=== PATIENT | female | born 1985 | race Two or more races ===

== ENCOUNTER 2018-10-12 00:59 | Emergency (ER) | payer SELFPAY ==
[~2018-10-12] VITALS: Ht 167.6 cm; Wt 65.8 kg
[~2018-10-12 00:59] MED LIST: OMEP20TA20 PO; PNV11TAB
--- NOTE | 2018-10-12 01:26 | NUR ---
BIBS. C/O "HAVE A HEADACHE, DIZZY AND DOUBLE VISION FOR 10X DAYS NOW" -SOB -N/V -ACUTE DISTRESS. -NEURO DEFICITS. AOX.4
[2018-10-12] MEDS ORDERED: DEXAMETHASONE SOD PHOSPHATE 4 MG/ML VIAL IM ONE (01:30)
[2018-10-12] MEDS ORDERED: CARISOPRODOL 350 MG TABLET PO ONE (01:30)
[2018-10-12] MEDS ORDERED: HYDROMORPHONE INJ 0.5 MG/0.5 ML SYRINGE IM ONE (01:30)
[2018-10-12] MEDS ORDERED: DEXAMETHASONE SOD PHOSPHATE 10 MG/ML VIAL ONE (01:32)
[2018-10-12] MEDS ORDERED: CARISOPRODOL 350 MG TABLET ONE (01:33)
[2018-10-12] MEDS ORDERED: HYDROMORPHONE 1 MG/1 ML DISP.SYRIN ONE (01:33)
[2018-10-12 04:28] VITALS: BP 122/81
== END 2018-10-12 04:29 | disposition home or self-care (01) ==
LOC: ER 01:04
DX: S13.4XXA Sprain of ligaments of cervical spine, initial encounter (principal); M54.12 Radiculopathy, cervical region; G44.209 Tension-type headache, unspecified, not intractable; Z98.890 Other specified postprocedural states; V49.69XA Unspecified car occupant injured in collision with other motor vehicles in traffic accident, initial encounter; Y93.89 Activity, other specified; Y92.89 Other specified places as the place of occurrence of the external cause; Y99.8 Other external cause status
CPT/HCPCS: 70450; 72125; 96372 ×2; 99284; A4606; J1100; J1170